=== PATIENT | female | born 1975 | race Caucasian/White ===

== ENCOUNTER → 2019-11-24 | Outpatient (CLI) | payer OTHER ==
--- NOTE | 2019-11-24 12:52 | XR ---
EXAMINATION TYPE: XR cervical spine limited DATE OF EXAM: 11/24/2019 COMPARISON: None HISTORY: Cervical disorder pain and tingling TECHNIQUE: 2 view cervical spine FINDINGS: There is straightening of the cervical spine. Prevertebral space is normal. Vertebral body heights are preserved. Disc heights are preserved. IMPRESSION: 1. Normal 2 view cervical spine
== END | disposition home or self-care (01) ==
LOC: RADXRYALE 11:53
PROVIDERS: ATTEND Internal Medicine
DX: M50.122 Cervical disc disorder at C5-C6 level with radiculopathy (principal)
CPT/HCPCS: 72040

== ENCOUNTER → 2020-12-06 | Outpatient (CLI) | payer OTHER ==
--- NOTE | 2020-12-06 14:28 | MR ---
MRI CERVICAL SPINE: CLINICAL HISTORY: Neck pain per order. Headache with pain causing pain and tingling into both arms. TECHNIQUE: Multiplanar, multisequence imaging of the cervical spine is performed without IV contrast. COMPARISON: Cervical spine x-rays August 01, 2020. FINDINGS: Sagittal images of the cervical spine show the craniocervical junction to appear within nor mal limits. The cervical and upper thoracic spinal cord is normal in course, caliber, and signal. Sl ight grade 1 retrolisthesis C4 on C5. The vertebral body and intravertebral disk heights are normal. The bone marrow signal intensity is within normal limits. Axial images show C2-C3 and C3-C4 levels to appear within normal limits. Axial images at C4-C5 levels with broad-based posterior disc protrusion effacing the anterior thecal sac, patent bilateral neural foramina. Axial images at C5-C6 level show smaller broad-based central disc protrusion mildly effacing anterior thecal sac, patent bilateral neural foramina. Axial images at C6-C7 level and C7-T1 level appear within normal limits.. IMPRESSION: Small disc herniations mid cervical spine mildly effacing the anterior thecal sac. Subtle spondylolisthesis C4-C5 level. No significant findings to account for patient's bilateral radiculopa thy type symptoms.
== END | disposition home or self-care (01) ==
LOC: RADMRIMAIN 12:49
PROVIDERS: ATTEND Orthopaedic Surgery
DX: M50.20 Other cervical disc displacement, unspecified cervical region (principal); M43.12 Spondylolisthesis, cervical region
CPT/HCPCS: 72141